=== PATIENT | female | born 1985 | race African-American/Black ===

== ENCOUNTER 2021-06-09 11:21 | Outpatient (CLI) | payer OTHER, BC, MEDICAID, SELFPAY | END 2021-06-09 11:22 | disposition home or self-care (01) | LOC: ANHSURGERY 11:26 | PROVIDERS: PCP Family Medicine; Visit Provider Obstetrics & Gynecology | DX: Z01.818 Encounter for other preprocedural examination (principal); N92.0 Excessive and frequent menstruation with regular cycle | CPT/HCPCS: 36415; 86850; 86900; 86901 ==

== ENCOUNTER 2021-06-14 00:58 | Day surgery (SDC) | payer OTHER, BC, MEDICAID, SELFPAY ==
[2021-06-08 09:29] VITALS: BMI 33.0
--- NOTE | 2021-06-13 11:14 | P.PNAN_ITS ---
Anes - Initial Pre Proc Eval Procedure: Operation Date: 06/14/21 10:00 Proposed Procedures p Laparoscopic Assisted Total Hysterectomy With Bilateral Salpingectomy - Mariaa Krishna MD Date/Time: 06/13/21 11:14 Surgeon: Mariaa Krishna MD Pre Op Diagnosis: menorrhagia Patient Data Age: 36 Gender: F Height: 1.68 m Weight: 93 kg Allergies Allergy/AdvReac Type Severity Reaction Status Date / Time No Known Allergies Allergy Verified 06/14/21 08:58 Home Medications Medication Instructions Recorded Confirmed Type calcium-vitamin D3-vitamin K 1 tablet PO DAILY 06/08/21 06/14/21 History [Calcium Chew] isotretinoin [Accutane] 40 mg PO DAILY 06/08/21 06/14/21 History rssvuadxtbve-qdu-jqha-FA-vit K 1 cap PO DAILY 06/08/21 06/14/21 History [Bariatric Multivitamins] pantoprazole 40 mg PO DAILY 06/08/21 06/14/21 History Patient hx anesthesia problems: none Family hx anesthesia problems: none [facility] Past Medical History Medical History (Updated 06/13/21 @ 11:20 by Robbi Cervantes DO) GERD (gastroesophageal reflux disease) PONV (postoperative nausea and vomiting) Surgical History Surgical History (Updated 06/13/21 @ 11:20 by Robbi Cervantes DO) History of History of repair of hiatal hernia History of sleeve gastrectomy Social History Social History Smoking status: Never smoker Alcohol intake: never Substance use: never Living arrangements: with family Additional living arrangements comments: [facility] Spiritual care concerns: No Anes - Eval Final PreProcedure Day of Procedure 06/13/21 11:14 Patient weight: obese Heart: regular rate and rhythm Lungs: clear to auscultation and normal air movement Airway: Mallampati scale class II Neurological: alert and oriented Last oral intake: >/= 8 hours ASA classification: II Emergent: no Anesthetic plan: proceed Anesthesia type and monitoring: general ETT and standard monitoring Informed Consent: The patient's anesthetic plan and its attendant risks and benefits were discussed with the patient/family/POA. Questions were solicited and answers provided to the satisfaction of the patient/family/POA.
[2021-06-14] VITALS (14 sets, daily range): BP systolic 108–141; BP diastolic 74–100; PULSE 53–94; RESP 13–18; TEMP 36.1–37.2; O2SAT 96–100
--- NOTE | 2021-06-14 07:33 | WPDHPUPDATE1 ---
History and Physical Update Update Date/Time: 06/14/21 07:33 History and Physical has been reviewed, including an updated exam of the patient. There are NO changes in the patient's condition. Risks, benefits, and alternatives have been discussed and questions answered. Patient agrees to proceed with procedure.
[2021-06-14] MEDS: LACTATED RINGERS 1,000 ML 30 ML IV CONT ×3 (08:45→12:35)
[2021-06-14] MEDS: ACETAMINOPHEN 500 MG TABLET 1000 MG PO (08:48)
[2021-06-14] MEDS: KETOROLAC 15 MG/ML VIAL (*BKC) IV PUSH (08:48)
[2021-06-14] MEDS: FAMOTIDINE 20 MG/2 ML VIAL IV PUSH (09:47)
[2021-06-14] MEDS: SCOPOLAMINE 1.5 MG PATCH TRANSDERM (09:47)
[2021-06-14] MEDS: ceFAZolin 2 GM/D5W 50 ML 2 GM/50 ML BAG IVPB (10:06)
--- NOTE | 2021-06-14 12:10 | P.OP_ITS ---
Procedure Note - Detailed Date of Procedure 06/14/21 Pre-op Diagnosis menorrhagia Post-op Diagnosis same Procedure Performed Total laparoscopic hysterectomy and bilateral salpingectomy. Surgeon Mariaa Krishna MD Anesthesia general Indications Severe menometrorrhagia, possible cervical mass Findings Enlarged fibroid uterus, normal ovaries. Description of Procedure This patient was taken to the operating room. She was prepped and draped in the dorsal lithotomy position after induction of general anesthesia. A 5 mm skin incision was made in the left upper quadrant the abdomen. A 5 mm trocar was inserted into the intrauterine cavity under direct visualization of the scope. Pneumoperitoneum was achieved. A left lower quadrant 11 mm incision was made with scalpel. An 11 mm trocar was inserted into the anterior abdominal cavity under direct visualization the scope. A 5 mm infraumbilical incision was made with a scalpel and a 5 mm trocar was inserted the intra-abdominal cavity under direct visualization of the scope. The uterine manipulator and Coke per were placed. This was done with a speculum. The speculum was placed. The cervix was grasped with a tenaculum. The stay sutures were placed at 3 and 9:00 a.m.. The stay sutures of 0 Vicryl were brought through the appropriately sized Monty cup. The tip of the ASHA manipulator was placed in the intrauterine cavity. The cup was slid into place around the cervix and into the fornices. It was locked into place. The sutures were then wrapped around the handle and tied under tension. Bilateral ureteral lysis was performed. This was done from the pelvic brim down to the uterine artery. This was done with careful dissection using sharp and blunt dissection. The fallopian tubes were removed bilaterally. The mesosalpinx around the fallopian tubes were cauterized transected with LigaSure cautery. This was done in a bilateral fashion from the ovary to the uterine cornua. The fallopian tube was transected at the uterine cornu and amputated. The tube was taken out the left lower quadrant trocar site. In a stepwise fashion along the lateral aspects of the uterus the round ligament and broad ligaments were cauterized transected down to the level of the uterine arteries. A bladder flap was created in the bladder was moved distally to the end of the cervix and over the Monty cup. The bilateral uterine arteries were cauterized and transected. Colpotomy was then performed. In a circumferential fashion the vagina was transected using unipolar cautery. The incision was made down on the Monty. The uterus and cervix were taken out through the vagina. A pneumo occluder was placed in the vagina. The vaginal cuff was closed with a 0 V lock suture. The pelvis was irrigated with copious amounts antibiotic irrigation. The ureters were again examined and found to be intact and flowing freely under the uterine arteries into the bladder. The bladder was intact. It was examined directly. The pneumoperitoneum was then reduced. Trocars removed. The skin incisions were closed with subcuticular could 4 Monocryl and covered with Dermabond para The vagina was irrigated with Betadine solution after removal of the Pneumo occ luder. The patient was taken to recovery room. She was stable condition. Sponge lap and needle counts were correct x2. Estimated Blood Loss 200 Drains Yes Packing No Pathology yes Complications No immediate complications Condition stable Disposition floor
[2021-06-14] MEDS: ONDANSETRON INJ 4 MG/2 ML VIAL IV PUSH (12:40)
[2021-06-14] MEDS: fentaNYL CITRATE INJ (*CRX) 100 MCG/2 ML VIAL 25 MCG IV PUSH ×4 (12:41→13:23)
[2021-06-14] MEDS: diphenhydrAMINE HCl INJ 50 MG/ML VIAL 25 MG IV PUSH (13:32)
--- NOTE | 2021-06-14 14:33 | PC.NURSE ---
PT arrived on unit via stretcher unaccompanied alert and awake. PT transferred to bed via maxi air with out difficulty. PT oriented to room 282 and surrounding area. PT introductions made and plan of care discussed per post op night filler surgery, pain management, and daily care activities. Pt instructed and educated per one to one discussion, and demonstration. PT recipient of such instructions and no barriers to learning identified. PT introductions made and plan of care discussed. PT verbalized understanding of such care.
[2021-06-14] MEDS: LACTATED RINGERS 1,000 ML 125 ML IV CONT (15:00)
[2021-06-14] MEDS: HYDROcodone/acetaminophen (*CRX) 10-325 MG TABLET 1 TAB PO ×3 (15:47→23:21)
[2021-06-14] MEDS: KETOROLAC 30 MG/ML VIAL (*BKC) IV PUSH ×2 (15:47→23:22)
[2021-06-15 05:40] VITALS: BP 114/68; PULSE 83; RESP 15; TEMP 37.3; O2SAT 99
[2021-06-15] MEDS: HYDROcodone/acetaminophen (*CRX) 10-325 MG TABLET 1 TAB PO ×2 (05:46→08:53)
[2021-06-15] MEDS: KETOROLAC 30 MG/ML VIAL (*BKC) IV PUSH (05:47)
--- NOTE | 2021-06-15 08:09 | PM.GYNPNOP ---
FOOTBALL SCOUT - A/P Postoperative Procedures: Procedures Operation Date: 06/14/21 10:00 Actual Procedure Side Surgeon p Laparoscopic Assisted Total Hysterectomy With Bilateral Salpingectomy Bilateral Mariaa Krishna MD Postoperative day: 1 Postoperative status: doing well and other (Tollerating Regular Diet) Postoperative plan: routine post-op care and discharge Time Spent With Patient Time: Total time spent is greater than 50% in coordination of care (as documented) at patient's floor/unit and/or counseling patient: Time with patient: 15 - 25 minutes FOOTBALL SCOUT- PN:Subj Post-Op Subjective Date/time seen: 06/15/21 08:09 Subjective: patient reports feeling better, pain is well controlled and patient is tolerating oral intake Exam Const: General: cooperative, healthy appearing, comfortable and no acute distress Resp: Auscultation: no crackles, no rales, no rhonchi and no wheezes Cardio: Rhythm: regular rhythm Heart sounds: no click and no murmurs GI: Inspection: non-distended Auscultation: normal bowel sounds Other: Incisions - CDI Extrem: General: normal to inspection, no pedal edema and no calf tenderness FOOTBALL SCOUT - PN: Obj Data Vital Signs Vital Signs: Vital Signs - 24 hr 06/14/21 08:24 06/14/21 12:06 06/14/21 12:20 Temperature 97.0 F L 97.6 F Pulse Rate 73 94 62 Respiratory Rate 18 16 16 Blood Pressure 119/74 137/79 130/79 Pulse Oximetry 100 100 100 06/14/21 12:35 06/14/21 12:50 06/14/21 13:05 Temperature Pulse Rate 58 L 53 L 56 L Respiratory Rate 16 14 14 Blood Pressure 129/82 138/85 141/95 H Pulse Oximetry 100 100 100 06/14/21 13:20 06/14/21 13:35 06/14/21 13:50 Temperature 97.2 F L Pulse Rate 54 L 61 65 Respiratory Rate 13 15 15 Blood Pressure 139/90 137/95 H 135/100 H Pulse Oximetry 100 100 100 06/14/21 14:05 06/14/21 14:20 06/14/21 14:55 Temperature 98.9 F Pulse Rate 73 74 81 Respiratory Rate 15 16 16 Blood Pressure 130/91 H 140/93 H 108/76 Pulse Oximetry 100 100 96 06/14/21 20:05 06/14/21 23:15 07/22/21 05:40 Temperature 98.4 F 98.3 F 99.2 F Pulse Rate 88 64 83 Respiratory Rate 13 14 15 Blood Pressure 133/78 133/95 H 114/68 Pulse Oximetry 98 100 99 Intake/Output Intake/Output: Intake & Output 06/12/21 06/13/21 06/14/21 06/15/21 23:59 23:59 23:59 23:59 Intake Total 570 Output Total 1050 450 Balance -480 -450 Meds/Results Medications: Active Medications Generic Name Dose Route Start Last Admin Trade Name Freq PRN Reason Stop Dose Admin Hydrocodone Bitart/Acetaminophen 1 tab 06/14/21 14:26 Hydrocodone/Acetaminophen (*Crx) 5-325 Mg Tablet PO Q3H PRN Pain Rated 5 or Less Hydrocodone Bitart/Acetaminophen 1 tab 06/14/21 14:26 06/15/21 05:46 Hydrocodone/Acetaminophen (*Crx) 10-325 Mg Tablet PO 1 tab Q3H PRN Administration Pain Rated 6 or Greater Dextrose/Sodium Chloride 1,000 mls @ 125 mls/hr 06/14/21 14:26 06/14/21 15:49 Dextrose 5% Sodium Chloride 0.45% IV CONT Not Given .Q8H WINNIE Ibuprofen 600 mg 06/14/21 14:26 Ibuprofen 600 Mg Tablet PO Q6H PRN Cramping Ketorolac Tromethamine 30 mg 06/14/21 14:26 06/15/21 05:47 Ketorolac 30 Mg/Ml Vial (*Bkc) IV PUSH 06/19/21 14:27 30 mg Q6H PRN Administration Pain Rated 4-6 Naloxone HCl 0.1 mg 06/14/21 14:26 Naloxone Hcl 0.4 Mg/Ml Vial IV PUSH Q2M PRN Respiratory rate less than 10 Ondansetron HCl 4 mg 06/14/21 14:26 Ondansetron Inj 4 Mg/2 Ml Vial IV PUSH Q6H PRN Nausea And Vomiting
[2021-06-15 08:20] VITALS: BP 107/63; PULSE 75; RESP 16; TEMP 37.2; O2SAT 99
[2021-06-15 08:30] VITALS: PULSE 83; RESP 15; O2SAT 99
[2021-06-15] MEDS: SIMETHICONE 80 MG TAB.CHEW (08:54)
== END 2021-06-15 11:39 | disposition home or self-care (01) ==
LOC: ANHSURGERY 08:10 → ANHOB2 15:27
PROVIDERS: PCP Family Medicine; Visit Provider Obstetrics & Gynecology
PROC: 0UT9FZZ Resection of Uterus, Via Natural or Artificial Opening With Percutaneous Endoscopic Assistance (ICD-10-PCS; CPT 58571; principal; 2021-06-14 10:00)
DX: N92.0 Excessive and frequent menstruation with regular cycle (principal); D25.1 Intramural leiomyoma of uterus; K21.9 Gastro-esophageal reflux disease without esophagitis; Z98.84 Bariatric surgery status; E66.9 Obesity, unspecified; Z68.33 Body mass index [BMI] 33.0-33.9, adult
CPT/HCPCS: 58571; 88307; 99199; A9270; J0690; J1100; J1170; J1200; J1885; J2250; J2405; J2704; J2710; J3010; J7030; J7120